=== PATIENT | female | born 1990 ===

== ENCOUNTER 2018-12-04 10:39 | Emergency (ER) | payer SELFPAY ==
[2018-12-04 10:44] VITALS: BMI 25.4
[2018-12-04 10:46] VITALS: BP 132/88; PULSE 89; RESP 17; TEMP 98.4; O2SAT 99
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
== END 2018-12-04 12:35 | disposition home or self-care (01) ==
LOC: H.ER 10:39
DX: L98.8 Other specified disorders of the skin and subcutaneous tissue (principal); R60.9 Edema, unspecified